=== PATIENT | female | born 1985 | race Asian ===

== ENCOUNTER 2017-07-15 09:00 | Inpatient (IN) | payer SELFPAY ==
[~2017-07-15] VITALS: Ht 168 cm; Wt 68.9 kg
[2017-07-15] MEDS ORDERED: PREN-380 PO (09:28)
[2017-07-15] MEDS ORDERED: CARBOPROST 250 MCG/ML AMP IM PRN (09:35)
[2017-07-15] MEDS ORDERED: METHYLERGONOVINE 0.2 MG/ML AMP IM PRN (09:35)
[2017-07-15] MEDS ORDERED: OXYTOCIN 10 UNITS/ML VIAL IM SCH (09:35)
[2017-07-15] MEDS ORDERED: PROMETHAZINE 25 MG/ML VIAL IVP PRN (09:35)
[2017-07-15] MEDS ORDERED: AMPICILLIN 2,000 MG in NACL 0.9% MINI-BAG PLUS 100 ML IV SCH (09:35)
[2017-07-15] MEDS ORDERED: NALBUPHINE HYDROCHLORIDE 10 MG/ML VIAL IVP PRN (09:35)
[2017-07-15] MEDS ORDERED: MISOPROSTOL 25 MCG TAB ONE (09:37)
[2017-07-15] MEDS ORDERED: AMPICILLIN 2,000 MG VIAL ONE (09:37)
[2017-07-15] MEDS: LACTATED RINGERS 1,000 ML IV SCH ×3 (09:52→22:09)
[2017-07-15 09:54] VITALS: BP 127/77
[2017-07-15 10:43] LABS: BASOPHILS # (AUTO) 0.1 K/uL (0.00-0.22); BASOPHILS % (AUTO) 0.8 % (0.0-2.0); EOSINOPHILS # (AUTO) 0.1 K/uL (0-0.4); EOSINOPHILS % (AUTO) 0.7 % (0.0-4.0); HEMOGLOBIN 12.8 g/dL (12.0-16.0); LYMPHOCYTES # (AUTO) 0.8 K/uL (2.5-16.5); MEAN CORPUSCULAR HEMOGLOBIN 28 pg (27-31); MEAN CORPUSCULAR HGB CONC 32 g/dL (33-37); MEAN CORPUSCULAR VOLUME 88 fL (80-94); MONOCYTES # (AUTO) 0.5 K/uL (0.8-1.0); MONOCYTES % (AUTO) 5.4 % (1.7-9.3); NEUTROPHILS # (AUTO) 6.9 K/uL (1.8-7.7); NEUTROPHILS % (AUTO) 83.1 % (42.2-75.2); PLATELET COUNT (AUTO) 214 K/uL (140-450); RED BLOOD CELL COUNT(AUTO) 4.57 MIL/uL (4.20-5.40); RED CELL DISTRIBUTION WIDTH 12.4 % (11.6-13.7); WHITE BLOOD COUNT (AUTO) 8.4 K/uL (4.8-10.8)
[2017-07-15 10:50] LABS: APPEARANCE,URINE HAZY (CLEAR); BILIRUBIN,URINE NEGATIVE (NEGATIVE); BLOOD, URINE 3+ (NEGATIVE); COLOR,URINE YELLOW (YELLOW); LEUKOCYTE ESTERASE ,URINE TRACE (NEGATIVE); NITRITE, URINE NEGATIVE (NEGATIVE); UGLUCOSE NEGATIVE (NEGATIVE)
[2017-07-15 10:58] LABS: RBC,URINE 3-10 (FEW) /HPF (0-5)
[2017-07-15 11:03] LABS: ANION GAP 15.3 (8-16); CARBON DIOXIDE 24.7 mmol/L (21-32); CREATININE 0.6 mg/dL (0.6-1.3)
[2017-07-15 11:10] LABS: ALBUMIN 2.9 g/dL (3.4-5.0); TOTAL BILIRUBIN 0.4 mg/dL (0.0-1.0)
[2017-07-15] MEDS ORDERED: MISOPROSTOL 25 MCG TAB VG SCH (12:00)
[2017-07-15] MEDS ORDERED: AMPICILLIN 1,000 MG VIAL ONE ×3 (13:58→22:14)
[2017-07-15] MEDS: AMPICILLIN 1,000 MG in NACL 0.9% MINI-BAG PLUS 50 ML IV SCH ×3 (14:05→22:16)
[2017-07-15] MEDS ORDERED: NALBUPHINE HYDROCHLORIDE 10 MG/ML VIAL ONE (15:53)
[2017-07-15] MEDS ORDERED: PROMETHAZINE 25 MG/ML VIAL ONE (15:53)
[2017-07-15] MEDS ORDERED: OXYTOCIN 20 UNITS in LACTATED RINGERS 1,000 ML IV SCH (16:00)
[2017-07-15] MEDS ORDERED: INFLUENZA VIRUS VACCINE QUAD 0.5 ML SYR IMVAC SCH (22:00)
[2017-07-15] MEDS ORDERED: BUPIVACAINE 0.125%/NS PREMIX 250 ML ONE (22:39)
[2017-07-16] MEDS: LACTATED RINGERS 1,000 ML IV SCH ×3 (00:25→08:59)
[2017-07-16] MEDS ORDERED: AMPICILLIN 1,000 MG VIAL ONE ×3 (01:33→10:27)
[2017-07-16] MEDS: AMPICILLIN 1,000 MG in NACL 0.9% MINI-BAG PLUS 50 ML IV SCH ×2 (02:03→10:46)
--- NOTE | 2017-07-16 08:47 | NUR ---
PATIENT HAS BEEN SCREENED AND CATEGORIZED LOW NUTRITION RISK. PATIENT WILL BE SEEN WITHIN 7 DAYS OF ADMISSION. 07/21/[address]
[2017-07-16] MEDS ORDERED: MISOPROSTOL 25 MCG TAB ONE (13:25)
[2017-07-16] MEDS ORDERED: BUPIVACAINE 0.125%/NS PREMIX 250 ML EPI SCH (14:15)
[2017-07-16] MEDS ORDERED: TRIAMCINOLONE 40 MG/ML 5ML VIAL ONE (15:23)
[2017-07-16] MEDS ORDERED: OXYTOCIN 10 UNITS/ML VIAL ONE (15:23)
[2017-07-16] MEDS ORDERED: KETAMINE 500 MG/5 ML VIAL ONE (15:27)
[2017-07-16] MEDS ORDERED: MIDAZOLAM 2 MG/2 ML VIAL ONE (15:27)
[2017-07-16] MEDS ORDERED: fentaNYL 0.05 MG/ML VIAL ONE (15:27)
[2017-07-16] MEDS ORDERED: MORPHINE PRES FREE 10 MG/10 ML AMP IV ONE (15:28)
[2017-07-16] MEDS ORDERED: SODIUM BICARBONATE 8.4% PFS 50 MEQ/50 ML SYR IVP ONE (15:30)
[2017-07-16] MEDS ORDERED: diphenhydrAMINE 50 MG/ML VIAL ONE (16:12)
[2017-07-16] MEDS ORDERED: METHYLERGONOVINE 0.2 MG/ML AMP ONE (16:21)
[2017-07-16] MEDS ORDERED: diphenhydrAMINE 50 MG/ML VIAL IVP PRN (16:40)
[2017-07-16] MEDS ORDERED: KETOROLAC 30 MG/ML VIAL IVP PRN (16:40)
[2017-07-16] MEDS ORDERED: ONDANSETRON 4 MG/2 ML VIAL IVP PRN (16:40)
[2017-07-16] MEDS ORDERED: CARBOPROST 250 MCG/ML AMP IM ONE (16:58)
[2017-07-16] MEDS ORDERED: IBUPROFEN 600 MG TAB PO PRN (19:35)
[2017-07-16] MEDS ORDERED: HYDROcodone/APAP 5/325 MG 1 TAB TAB PO PRN (19:35)
[2017-07-16] MEDS ORDERED: OXYTOCIN 10 UNITS in LACTATED RINGERS 1,000 ML IV SCH (19:35)
[2017-07-16] MEDS: DOCUSATE SOD/SENNA 50/8.6 MG 1 TAB PO SCH (20:51)
[2017-07-16] MEDS: OXYTOCIN 20 UNITS in LACTATED RINGERS 1,000 ML IV SCH (22:18)
[2017-07-17] MEDS ORDERED: ceFAZolin 1,000 MG VIAL ONE (03:27)
[2017-07-17] MEDS: ACETAMINOPHEN 325 MG TAB PO PRN ×3 (03:42→12:49)
--- NOTE | 2017-07-17 03:45 | NUR ---
CALL PLACE TO PHARMACIST ASK IF OK TO USE NS FOR ANCEF INSTEAD OF D5, PER PHARMACIST OK TO USE
[2017-07-17 06:02] LABS: HEMATOCRIT 30.7 % (36-48); HEMOGLOBIN 10.5 g/dL (12.0-16.0); MEAN CORPUSCULAR HEMOGLOBIN 30 pg (27-31); MEAN CORPUSCULAR HGB CONC 34 g/dL (33-37); MEAN CORPUSCULAR VOLUME 87 fL (80-94); PLATELET COUNT (AUTO) 174 K/uL (140-450); RED BLOOD CELL COUNT(AUTO) 3.52 MIL/uL (4.20-5.40); RED CELL DISTRIBUTION WIDTH 12.3 % (11.6-13.7); WHITE BLOOD COUNT (AUTO) 18.4 K/uL (4.8-10.8)
[2017-07-17] MEDS ORDERED: OXYTOCIN 20 UNITS/LR PREMIX 1,000 ML IV ONE (06:10)
[2017-07-17] MEDS: OXYTOCIN 20 UNITS in LACTATED RINGERS 1,000 ML IV SCH (06:18)
[2017-07-17 07:03] LABS: LYMPHOCYTES % (MANUAL) 6 % (20-46)
[2017-07-17 07:04] LABS: MONOCYTES % (MANUAL) 5 % (5-12)
[2017-07-17] MEDS: oxyCODONE/APAP 5/325 MG 1 TAB TAB PO PRN (17:56)
[2017-07-17] MEDS: DOCUSATE SOD/SENNA 50/8.6 MG 1 TAB PO SCH (21:11)
[2017-07-18] MEDS: oxyCODONE/APAP 5/325 MG 1 TAB TAB PO PRN ×2 (08:28→23:07)
== END 2017-07-19 15:45 | disposition home or self-care (01) | DRG 766 ==
LOC: MLD 09:00 → MFCC 07-16 16:00
PROVIDERS: ADMIT Obstetrics & Gynecology; ATTEND Obstetrics & Gynecology
PROC: 10D00Z1 Extraction of Products of Conception, Low, Open Approach (ICD-10-PCS; principal; 2017-07-15)
DX: O62.2 Other uterine inertia (principal); O77.0 Labor and delivery complicated by meconium in amniotic fluid; Z37.0 Single live birth; Z3A.39 39 weeks gestation of pregnancy
CPT/HCPCS: 36415; 51702; 59200; 80053; 81001; 85025; 86592; 86762; 86886; 86900; 86901; 87086; 87340; 87653-90; J0290; J0690; J1200; J2210; J2250; J2270; J2300; J2405; J2550; J2590; J3010; J3301; J3490; J7060; J7120